=== PATIENT | female | born 1945 | race Caucasian/White ===

== ENCOUNTER 2017-10-08 12:22 | Observation (INO) | payer OTHER, MEDICAID ==
--- NOTE | 2017-10-08 12:48 | CPEKG ---
Heart Rate: 70 RR Interval: 857 P-R Interval: 152 QRSD Interval: 80 QT Interval: 408 QTC Interval: 441 P [place]: 33 QRS [place]: -11 T Wave [place]: 2 EKG Severity - BORDERLINE ECG - EKG Impression: SINUS RHYTHM EKG Impression: CONSIDER ANTERIOR INFARCT EKG Impression: BORDERLINE T ABNORMALITIES, ANTERIOR LEADS Electronically Signed By: Collin Blackwell 09-Oct-2017 16:51:43
[2017-10-08] MEDS ORDERED: ASPIRIN 81 MG CHEWABLE TAB PO ONE (12:59)
[2017-10-08] MEDS ORDERED: NS 500 ML IV ONE (12:59)
[2017-10-08] MEDS ORDERED: MECLIZINE HCL 25 MG TAB PO ONE (13:02)
[2017-10-08] MEDS ORDERED: NITROGLYCERIN 2% 1 GM PACKET TP ONE (13:05)
[2017-10-08] MEDS ORDERED: NITROGLYCERIN 2% 1 GM PACKET ONE (13:06)
--- NOTE | 2017-10-08 13:25 | EDPHY ---
H & P Stated Complaint: dizzy, nausea, buchanan, and fatigue for 3 days since arriving to [place] Time Seen by Provider: 10/08/17 12:27 HPI/ROS: This patient complains of a 3 day history of generalized weakness and fatigue associated with nausea and anorexia. She also complains of shortness of breath over the past 3 days. The shortness of breath worsens with exertion with no other exacerbating factors noted. She reports associated lightheadedness intermittently when she is on her feet. She arrived here in [place] from [place] after driving here with family 1 week ago. She also reports that she had a sore throat at the beginning of the week this 6/10 intensity is now resolved. She also had some nasal congestion which persists. Finally, she reports a mild cough in the mornings that feels congested but does not produce any sputum. ROS: Constitutional: No fevers or chills. Positive fatigue. She slept for 20 hr yesterday and reports generalized fatigue today. HEENT: As per HPI. Currently no sore throat. No ear pain. No sinus pain. Mild nasal congestion. Neuro: She reports headache over the past few days frontal in location moderate intensity that improved with caffeine this morning. No other exacerbating factors are noted. Currently minimal to no headache. No focal numbness tingling weakness. Pulmonary: No hemoptysis. No pleuritic pain. Cardiovascular: No chest pain. She has not noticed heart palpitations. She denies any leg swelling or pain. GI: Nausea but no vomiting. No abdominal pain. She reports a few stools a day for the past few days. : No dysuria, frequency urgency. Musculoskeletal: She has chronic low back pain that is unchanged. She also has pain the trapezius muscles which is chronic for her unchanged. Endocrine: No complaints Source: Patient, Family (Patient is accompanied by her daughter who drove her here by private vehicle for further evaluation.) Exam Limitations: No limitations - Medical/Surgical History PMH: Hypercholesterolemia Hypertension No known cardiac history in this patient. Family history Sister with premature coronary artery disease. Her mother also of an [place] at around age 69. No family history of DVT or PE. Other PMH: htn, depression, zechariah-diaz, ovarian cyst removal, appy, BTL, bladder CA remission since 2007 - Family History Significant Family History: Heart disease (See above) - Social History Smoking Status: Former smoker Alcohol Use: None Drug Use: None Additional Social History: Drove to [place] from [place] 1 week ago. Lives in [place] prior to the last 6 weeks in [place]. - Physical Exam Exam: General Appearance: Pleasant 71-year-old female Alert, no distress. Eyes: Pupils equal and round no pallor or injection. ENT, Mouth: Mucous membranes moist. Oropharynx clear with no erythema, exudates or dysphonia. No sinus tenderness to percussion. Ears are clear bilaterally. Respiratory: Soft rales at the bases bilaterally right more than left. Cardiovascular: Regular rate and rhythm. No murmur gallop rub. No JVD. No calf swelling or tenderness. Gastrointestinal: Abdomen is soft and nontender, no masses, bowel sounds normal. Neurological: GCS 15 with no focal deficits. Skin: Warm and dry, no rashes. Musculoskeletal: Neck is supple nontender. Extremities are symmetrical, full range of motion. Psychiatric: Mood and affect are normal DIFFERENTIAL DIAGNOSIS: After history and physical exam differential diagnosis was considered for myocardial ischemic disease, viral syndrome, pneumonia, pulmonary embolism, mild gastroenteritis with dehydration, UTI Constitutional: Initial Vital Signs Temperature (C) 36.7 C 10/08/17 12:32 Heart Rate 72 10/08/17 12:32 Respiratory Rate 18 10/08/17 12:32 Blood Pressure 175/96 H 10/08/17 12:32 O2 Sat (%) 92 10/08/17 12:32 O2 Delivery Mode Room Air O2 (L/minute) 2 Allergies/Adverse Reactions: No Known Allergies Allergy (Unverified 10/08/17 12:30) Home Medications: Medication Instructions Recorded Hydrochlorothiazide 10/08/17 Lexapro 10/08/17 Losartan Potassium 10/08/17 Tylenol PM (*) 10/08/17 Medical Decision Making - Diagnostics EKG Interpretation: 12 lead EKG performed shortly after arrival at 1246 indication generalized weakness with nausea rule out cardiac ischemia or KY Sinus rhythm at 70 Intervals: Normal throughout [place]: P of 33, QRS of -11, T of 2 ST segments: T-wave inversions leads V2 and V3. Also a poor R-wave progression anteriorly Overall assessment sinus rhythm with evidence of possible anterior ischemia. No prior EKGs for comparison at this time. Imaging Results: Imaging Impressions Chest X-Ray 10/08/17 13:03 Impression: Hyperexpanded lungs which can be seen with COPD. Two view chest x-ray: Normal by my interpretation Imaging: I viewed and interpreted images myself ED Course/Re-evaluation: IV, cardiac rn Supplemental O2 with improvement in her O2 sat from 92% to mid 90s Meclizine for nausea Aspirin 324 chewed 0.5 in nitropaste Studies: CBC is normal, metabolic panel normal, POC troponin is 0, D-dimer is normal. Urine dip positive only for will minimal leuks. I spoke with Marce mid-level practitioner with the hospitalist group and arrange for admission for this patient to Dr. Bedolla Discussion: This patient presents with generalized weakness nausea and dyspnea associated with any EKG concerning for possible anterior ischemic findings. In terms of her background history and risk factor she has a heart score of 7 warranting admission for further workup and evaluation. See no evidence of pneumonia on her chest x-ray, given low risk factors and normal D-dimer, we have effectively ruled out pulmonary embolism. Doubt acute infectious etiology given normal CBC, lack of fever or other focal findings. - Data Points Laboratory Results: Laboratory Results 10/08/17 12:47 10/08/17 10/08/17 10/08/17 12:52 12:51 12:47 WBC RBC Hgb Hct MCV MCH MCHC RDW Plt Count MPV Neut % (Auto) Lymph % (Auto) Upton % (Auto) Eos % (Auto) Baso % (Auto) Nucleat RBC Rel Count Absolute Neuts (auto) Absolute Lymphs (auto) Absolute Monos (auto) Absolute Eos (auto) Absolute Basos (auto) Absolute Nucleated RBC Immature Gran % Immature Gran # PT INR APTT D-Dimer POC Sodium 136 mEq/L mEq/L (135-145) POC Potassium 4.0 mEq/L mEq/L (3.3-5.0) POC Chloride 101.0 mEq/L mEq/L (97-110) POC Total CO2 25 mEq/L mEq/L (22-31) POC BUN 10 mg/dL mg/dL (7-23) POC Creatinine 1.0 mg/dL mg/dL (0.6-1.0) POC Glucose 125 mg/dL H mg/dL (70-100) POC Calcium 9.3 mg/dL mg/dL (8.5-10.4) POC Total Bilirubin 0.5 mg/dL mg/dL (0.1-1.4) POC AST 32 IU/L IU/L (14-46) POC ALT 21 IU/L IU/L (9-52) POC Alk Phosphatase 98 IU/L IU/L (38-126) POC Troponin I 0.00 ng/mL ng/mL (0.00-0.08) Troponin I Pending NT-Pro-B Natriuret Pep Pending POC Total Protein 7.3 g/dL g/dL (6.3-8.2) POC Albumin 4.0 g/dL g/dL (3.5-5.0) 10/08/17 10/08/17 12:47 12:47 WBC 8.56 10^3/uL 10^3/uL (3.80-9.50) RBC 5.01 10^6/uL 10^6/uL (4.18-5.33) Hgb 14.3 g/dL g/dL (12.6-16.3) Hct 43.5 % % (38.0-47.0) MCV 86.8 fL fL (81.5-99.8) MCH 28.5 pg pg (27.9-34.1) MCHC 32.9 g/dL g/dL (32.4-36.7) RDW 14.3 % % (11.5-15.2) Plt Count 323 10^3/uL 10^3/uL (150-400) MPV 9.9 fL fL (8.7-11.7) Neut % (Auto) 62.2 % % (39.3-74.2) Lymph % (Auto) 25.9 % % (15.0-45.0) Upton % (Auto) 9.2 % % (4.5-13.0) Eos % (Auto) 1.6 % % (0.6-7.6) Baso % (Auto) 0.9 % % (0.3-1.7) Nucleat RBC Rel Count 0.0 % % (0.0-0.2) Absolute Neuts (auto) 5.31 10^3/uL 10^3/uL (1.70-6.50) Absolute Lymphs (auto) 2.22 10^3/uL 10^3/uL (1.00-3.00) Absolute Monos (auto) 0.79 10^3/uL 10^3/uL (0.30-0.80) Absolute Eos (auto) 0.14 10^3/uL 10^3/uL (0.03-0.40) Absolute Basos (auto) 0.08 10^3/uL 10^3/uL (0.02-0.10) Absolute Nucleated RBC 0.00 10^3/uL 10^3/uL (0-0.01) Immature Gran % 0.2 % % (0.0-1.1) Immature Gran # 0.02 10^3/uL 10^3/uL (0.00-0.10) PT 13.0 SEC SEC (12.0-15.0) INR 0.96 (0.83-1.16) APTT 28.3 SEC SEC (23.0-38.0) D-Dimer < 0.27 ug/mLFEU ug/mLFEU (0.00-0.50) POC Sodium POC Potassium POC Chloride POC Total CO2 POC BUN POC Creatinine POC Glucose POC Calcium POC Total Bilirubin POC AST POC ALT POC Alk Phosphatase POC Troponin I Troponin I NT-Pro-B Natriuret Pep POC Total Protein POC Albumin Medications Given: Discontinued Medications Aspirin (Aspirin) 324 mg PO EDNOW ONE Stop: 10/08/17 13:00 Last Admin: 10/08/17 13:15 Dose: 324 mg Meclizine HCl (Meclizine Hcl) 25 mg PO EDNOW ONE Stop: 10/08/17 13:03 Last Admin: 10/08/17 13:15 Dose: 25 mg Nitroglycerin (Nitro-Bid 2%) 0.5 inch TP EDNOW ONE Stop: 10/08/17 13:06 Last Admin: 10/08/17 13:13 Dose: 0.5 inch Point of Care Test Results: Chemistry 10/08/17 10/08/17 12:52 12:51 POC Sodium 136 mEq/L mEq/L (135-145) POC Potassium 4.0 mEq/L mEq/L (3.3-5.0) POC Chloride 101.0 mEq/L mEq/L (97-110) POC Total CO2 25 mEq/L mEq/L (22-31) POC BUN 10 mg/dL mg/dL (7-23) POC Creatinine 1.0 mg/dL mg/dL (0.6-1.0) POC Glucose 125 mg/dL H mg/dL (70-100) POC Calcium 9.3 mg/dL mg/dL (8.5-10.4) POC Total Bilirubin 0.5 mg/dL mg/dL (0.1-1.4) POC AST 32 IU/L IU/L (14-46) POC ALT 21 IU/L IU/L (9-52) POC Alk Phosphatase 98 IU/L IU/L (38-126) POC Troponin I 0.00 ng/mL ng/mL (0.00-0.08) POC Total Protein 7.3 g/dL g/dL (6.3-8.2) POC Albumin 4.0 g/dL g/dL (3.5-5.0) Departure - Departure Disposition: [facility] Inpatient Acute Clinical Impression: Generalized weakness, Anterior T wave inversion, Nausea Condition: Fair
[2017-10-08 14:11] LABS: PLATELET COUNT 323 10^3/uL (150-400)
[2017-10-08 14:27] LABS: INR 0.96 (0.83-1.16)
[2017-10-08] MEDS ORDERED: ONDANSETRON DISINTEGRATING 4 MG TAB PO PRN (16:28)
[2017-10-08] MEDS ORDERED: ACETAMINOPHEN 325 MG TAB PO PRN (16:28)
[2017-10-08] MEDS ORDERED: ONDANSETRON 4 MG/2 ML VIAL IVP PRN (16:28)
--- NOTE | 2017-10-08 16:36 | PDGENHP ---
History and Physical - Chief Complaint chest pain - History of Present Illness 71 yo female [place] [facility] [place] with multiple symptoms. She has had a sore throat, stuffy head and headache for past week. For the past 3 days, she has felt lightheaded and dizzy. No vertigo, more lightheaded sensation. No chest pain. She denies shortness of breath, but c/o dyspnea on exertion. +non- productive cough, which is mild. She notes a h/o sleep apnea, untreated, and is sleeping more than usual. She slept 20 hrs yesterday. No fevers or chills. No h/o hayfever or allergies. She lives in [place] and spent the past month in [place], [place]. She has been in [place] for about a week and has previously travelled to [facility] without symptoms. History Information - Allergies/Home Medication List Allergies/Adverse Reactions: No Known Allergies Allergy (Unverified 10/08/17 12:30) Home Medications: Acetamn/Diphenhydramine 500/25 [Tylenol PM (*)] 1 each PO HS 10/08/17 [Last Taken 10/07/17] Escitalopram Oxalate [Lexapro] 20 mg PO HS 10/08/17 [Last Taken 10/08/17] Herbals/Supplements -Info Only 1 ea PO DAILY 10/08/17 [Last Taken 10/08/17] Hydrochlorothiazide [HCTZ (*)] 25 mg PO DAILY PRN 10/08/17 [Last Taken 10/08/17] Losartan Potassium [Cozaar 50 mg (*)] 50 mg PO HS 10/08/17 [Last Taken 10/08/17] I have personally reviewed and updated: family history, medical history, social history, surgical history - Past Medical History hypertension Additional medical history: depression. h/o ebv. sleep apnea - Surgical History Reports: no pertinent surgical hx - Family History Additional family history: dad had copd. mom had heart disease. sister has h/ o MA and CVA - Social History Smoking Status: Former smoker Alcohol Use: None Drug Use: None Additional social history: Travelling currently, from . Quit smoking 30 yrs ago. Review of Systems Review of Systems: ROS: 10pt was reviewed & negative except for what was stated in HPI & below Physical Exam Physical Exam: Temp Pulse Resp BP Pulse Ox 36.9 C 79 16 135/88 H 89 L 10/08/17 15:50 10/08/17 15:50 10/08/17 15:50 10/08/17 15:50 10/08/17 15:50 Constitutional: no apparent distress Eyes: PERRL Ears, Nose, Mouth, Throat: moist mucous membranes Cardiovascular: regular rate and rhythym, systolic murmur, carotid bruit (right carotid bruit) Respiratory: no respiratory distress, clear to auscultation Gastrointestinal: normoactive bowel sounds, soft, non-tender abdomen Skin: warm Musculoskeletal: full muscle strength Neurologic: AAOx3, CN II-XII Intact Psychiatric: interacting appropriately Lab Data & Imaging Review 10/08/17 12:47 WBC 8.56 10^3/uL (3.80-9.50) 10/08/17 12:47 RBC 5.01 10^6/uL (4.18-5.33) 10/08/17 12:47 Hgb 14.3 g/dL (12.6-16.3) 10/08/17 12:47 Hct 43.5 % (38.0-47.0) 10/08/17 12:47 MCV 86.8 fL (81.5-99.8) 10/08/17 12:47 MCH 28.5 pg (27.9-34.1) 10/08/17 12:47 MCHC 32.9 g/dL (32.4-36.7) 10/08/17 12:47 RDW 14.3 % (11.5-15.2) 10/08/17 12:47 Plt Count 323 10^3/uL (150-400) 10/08/17 12:47 MPV 9.9 fL (8.7-11.7) 10/08/17 12:47 Neut % (Auto) 62.2 % (39.3-74.2) 10/08/17 12:47 Lymph % (Auto) 25.9 % (15.0-45.0) 10/08/17 12:47 Hood % (Auto) 9.2 % (4.5-13.0) 10/08/17 12:47 Eos % (Auto) 1.6 % (0.6-7.6) 10/08/17 12:47 Baso % (Auto) 0.9 % (0.3-1.7) 10/08/17 12:47 Nucleat RBC Rel Count 0.0 % (0.0-0.2) 10/08/17 12:47 Absolute Neuts (auto) 5.31 10^3/uL (1.70-6.50) 10/08/17 12:47 Absolute Lymphs (auto) 2.22 10^3/uL (1.00-3.00) 10/08/17 12:47 Absolute Monos (auto) 0.79 10^3/uL (0.30-0.80) 10/08/17 12:47 Absolute Eos (auto) 0.14 10^3/uL (0.03-0.40) 10/08/17 12:47 Absolute Basos (auto) 0.08 10^3/uL (0.02-0.10) 10/08/17 12:47 Absolute Nucleated RBC 0.00 10^3/uL (0-0.01) 10/08/17 12:47 Immature Gran % 0.2 % (0.0-1.1) 10/08/17 12:47 Immature Gran # 0.02 10^3/uL (0.00-0.10) 10/08/17 12:47 PT 13.0 SEC (12.0-15.0) 10/08/17 12:47 INR 0.96 (0.83-1.16) 10/08/17 12:47 APTT 28.3 SEC (23.0-38.0) 10/08/17 12:47 D-Dimer < 0.27 ug/mLFEU (0.00-0.50) 10/08/17 12:47 POC Sodium 136 mEq/L (135-145) 10/08/17 12:51 POC Potassium 4.0 mEq/L (3.3-5.0) 10/08/17 12:51 POC Chloride 101.0 mEq/L (97-110) 10/08/17 12:51 POC Total CO2 25 mEq/L (22-31) 10/08/17 12:51 POC BUN 10 mg/dL (7-23) 10/08/17 12:51 POC Creatinine 1.0 mg/dL (0.6-1.0) 10/08/17 12:51 POC Glucose 125 mg/dL (70-100) H 10/08/17 12:51 POC Calcium 9.3 mg/dL (8.5-10.4) 10/08/17 12:51 POC Total Bilirubin 0.5 mg/dL (0.1-1.4) 10/08/17 12:51 POC AST 32 IU/L (14-46) 10/08/17 12:51 POC ALT 21 IU/L (9-52) 10/08/17 12:51 POC Alk Phosphatase 98 IU/L (38-126) 10/08/17 12:51 POC Troponin I 0.00 ng/mL (0.00-0.08) 10/08/17 12:52 Troponin I < 0.012 ng/mL (0.000-0.034) 10/08/17 12:47 NT-Pro-B Natriuret Pep 170 pg/mL (0-125) H 10/08/17 12:47 POC Total Protein 7.3 g/dL (6.3-8.2) 10/08/17 12:51 POC Albumin 4.0 g/dL (3.5-5.0) 10/08/17 12:51 Visualized and Interpreted Chest x-ray results: Yes Chest X-Ray results: no infiltrate, other (hyperexpanded lung cerrato) Visualized and Interpreted EKG results: Yes EKG Interpretation: Positive for: normal sinsus rhythm, T waves inversion Assessment & Plan Assessment: Dyspnea - Differential includes COPD, ACS, pulmonary hypertension (note h/o untreated ANAHI), viral URI. D dimer neg. EKG with anterior and inferior T wave inversions. Chest pain free. CXR with hyperexpanded lung cerrato, distant tobacco hx. -trend trop -check echo to eval LV function as well as assess for pulmonary hypertension and valve dz -prn duonebs -advised needs to revisit outpt sleep study -send resp viral panel Dizziness - as above, check echo to r/o valve disease. Also, obtain carotid artery u/s given right carotid bruit on exam. Check TSH and orthostatics. Abnormal EKG - no chest pain, trop neg. HEART score 4, 16% risk of adverse cardiac event. -trend trop -stress test in am if trops neg Hypertension - cont outpt meds ANAHI - outpt sleep study, CPAP recommended. May need nocturnal O2 here. Full code Dispo - obs, possible d/c tomorrow if above workup neg.
[2017-10-08] MEDS ORDERED: IPRATROPIUM/ALBUTEROL 3 ML DEYVIAL IH PRN (16:40)
[2017-10-08] MEDS ORDERED: NITROGLYCERIN 2% 1 GM PACKET TP SCH (18:00)
[2017-10-08] MEDS ORDERED: MAGNESIUM OXIDE 400 MG TAB PO SCH (21:00)
[2017-10-08] MEDS ORDERED: LOSARTAN POTASSIUM 50 MG TAB PO SCH (21:00)
[2017-10-08] MEDS ORDERED: ESCITALOPRAM OXALATE 10 MG TAB PO SCH (21:00)
[2017-10-08] MEDS ORDERED: ACETAMN/DIPHENHYDRAMINE 500/25MG TAB PO SCH (21:00)
[2017-10-09] MEDS ORDERED: ASPIRIN EC 81 MG TAB PO SCH (09:00)
[2017-10-09] MEDS ORDERED: REGADENOSON 0.4 MG/5 ML SYR IVP ONE (10:18)
--- NOTE | 2017-10-09 11:31 | CPR ---
[f rep st] NONINVASIVE CARDIAC PROCEDURE REPORT DATE OF PROCEDURE: 10/09/2017 PROCEDURE: Lexiscan stress test. ORDERING PHYSICIAN: Lynn Bedolla MD., hospitalist. REASON FOR TEST: 1. Chest pain. 2. Abnormal EKG. Resting EKG shows a heart rate of 82. Normal sinus rhythm. No ischemic changes. She does have Q waves in lead III, late R-wave progression in V1, V2. RESTING INFORMATION: Resting pre blood pressure 132/71, heart rate 82, oxygen saturation 92% asympto matic. She is asymptomatic prior to initiation of test portion. Lexiscan was injected rapidly, followed by saline flush. Cardiolite was then injected, followed by s samson flush. She did feel tingling in her back of her neck down to her toes and then into her finger tips soon after the injection. She did become flushed. Test blood pressure 148/84, oxygen saturatio n 97, peak heart rate 108. No EKG changes with infusion. RECOVERY: She did spontaneously recover. Resting blood pressure 146/78, oxygen saturation 93%, hear t rate 91. Her symptoms did subside during recovery with caffeine. At this time, she currently is s table. She is stable for nuclear imaging. /[id number]/MODL
--- NOTE | 2017-10-09 13:37 | ECHO ---
[email or web address] [address] [address] Main: [phone] Fax: [email or web address] Echocardiogram Name: RUTH ANN FERREIRA MR#: [id number] Study Date: 10/09/2017 Study Time: 12:19 PM Date of : 1945 Age: 71 year(s) Height: 157.5 cm (62 in.) Weight: 71.67 kg (158 lb.) BSA: 1.73 m2 Gender: Female Examination: Echo Indication: SOB/BAER Image Quality: Contrast: Requested by: Lynn Bedolla BP: 161 mmHg/100 mmHg Heart Rate: Rhythm: Indication: SOB/BAER Procedure Staff Claims Counsel: Rochelle Bowers RDCS Reading Physician: Rajendra Dupont MD Requesting Provider: Conclusions: Normal size left ventricle. No LV hypertrophy. Global hypercontractility of the left ventricle. The ejection fraction is estimated to be 70-75 %. Mild mitral valve regurgitation is present. The aortic valve is tri-leaflet. Trivial tricuspid valve regurgitation. No previous. Measurements: Chambers Valvular Assessment AV/MV Valvular Assessment TV/PV Normal Normal Normal Name Value Range Name Value Range Name Value Range Ao Sharon (MM): 3.0 cm (2.2 cm-3.7 AV meanP mmHg ( - ) cm) IVSd (2D): 1.1 cm (0.6 cm-1.1 cm) LVDd (2D): 3.5 cm (3.9 cm-5.3 cm) LVDs (2D): 1.6 cm (2.1 cm-4 cm) LVPWd (2D): 0.8 cm ( - ) LVEF (2D): 85 (>=54 %) EF Range: 70-75 % Continued Measurements: Chambers Valvular Assessment AV/MV Name Value Name Value Patient: RUTH ANN FERREIRA Study Date: 10/09/2017 Page 1 of 2 12:19 PM LADs: 3.1 cm MV E' Septal: 0.06 m/s LADs Lon.3 cm LA Area: 14.2 cm2 Additional Vessels Name Value Ao Ascendin.3 cm Findings: Left Ventricle: Normal size left ventricle. No LV hypertrophy. Global hypercontractility of the left ventricle. The ejection fraction is estimated to be 70-75 %. No regional wall motion abnormality. Right Ventricle: Normal size right ventricle. Left Atrium: The left atrium is normal in size. Right Atrium: The right atrium is normal in size. Mitral Valve: Mild mitral annular calcification. Mild mitral valve regurgitation is present. Aortic Valve: The aortic valve is normal in appearance and function. The aortic valve is tri-leaflet. Tricuspid Valve: The tricuspid valve is normal in appearance and function. Trivial tricuspid valve regurgitation. Pulmonic Valve: The pulmonic valve is normal in appearance and function. Trivial pulmonic valve regurgitation. Aorta: The aorta is normal. Pericardium: No pericardial effusion. There is pericardial fat. (No Signature Object) Patient: RUTH ANN FERREIRA Study Date: 10/09/2017 Page 2 of 2 12:19 PM [id number]
--- NOTE | 2017-10-09 15:10 | ASMTCASEMG ---
Living Arrangements What is your living Answers: Alone arrangement? Who do you live with? Type Of Residence What kind of residence do Answers: House you live in? Discharge Plan Comments Coordination Status Comments Notes: Pts case discussed in morning rounds. Pt is a 71 y/o female admitted for chest pain and weakness. Pt is visiting from [place]. Therapies have been ordered and awaiting recommendations. Needs are TBD at this time. CM to follow. Plan: TBD Date Signed: 10/09/2017 03:09 PM Electronically Signed By:MOLLY Smith
[2017-10-09 15:36] VITALS: BP 156/85
--- NOTE | 2017-10-09 18:24 | PDDCSUM ---
Discharge Summary Discharge Summary: DISCHARGE DIAGNOSES: -acute hypoxemic respiratory failure -suspect COPD from prior smoking is most likely cause but could not rule out asthma -known untreated obstructive sleep apnea, not using CPAP which has been prescribed -question of possible restrictive lung disease based on bedside spirometry PROCEDURES: * Bedside spirometry showing notable improvement in her forced expiratory volume after bronchodilator. The FEV/FVC ratio before bronchodilator was in what might be considered normal range, but I believe this may be due to the fact that the FVC actually measured low at 64% of her predicted value. Whether this actually represents any restriction or not is questionable at this time. * Echocardiogram showing preserved LVEF with no wall motion abnormalities, no valvular findings of concern, and no evidence of pulmonary hypertension, though there was not a tricuspid jet to measure pulmonary pressure estimates * Lexiscan stress with myocardial perfusion imaging with normal ejection fraction and wall motion, and no perfusion abnormalities * Carotid Doppler imaging with no evidence of any significant stenosis HOSPITAL COURSE SUMMARY: This patient who is visiting from [place] after driving across the country, comes into the hospital complaining of shortness of breath, along with a number of other symptoms including a slight cough, sore throat, some lightheadedness, and some mild loose stools. There is no fever. She did not have any chest pain and there was no arrhythmia and no evidence of heart failure. There was nothing to suggest thromboembolic disease. She was tested for viral infections with nasal swabs and stool studies but nothing showed up on PCR. She did have some hypoxemia. Lungs had clear but diminished breath sounds, and chest x-ray showed some mild hyperexpansion but otherwise unremarkable. She was tested with echocardiogram a myocardial perfusion stress testing to look for any cardiac cause and these tests were essentially normal as detailed above. The patient did here have some exertional dyspnea. There was some intermittent mild hypoxemia at rest, but she became notably more hypoxemic with easy walking in the hallway and more dyspneic with this. The patient did has previous history of diagnosed sleep apnea which has been untreated, which she says is because she has had trouble getting the proper face mask and trouble getting insurance coverage due to timing of getting face mask. We did not see evidence of pulmonary hypertension or right heart failure here. She does have a history of smoking cigarettes for 30 years but quit around 30 years ago. We did do some bedside spirometry and this shows abnormalities as described above, primarily a obstructive abnormality that improves with bronchodilator challenge. Given her smoking history, her hypoxemia, her chest x-ray with hyperexpansion, decreased breath sounds, and her bedside spirometry changes I suspect this is most likely COPD with symptoms manifesting at higher altitude than her home. However given her postmenopausal state and her recent slight cough could not rule out asthma, though did not hear wheezing here. The plan here is to start her on albuterol and Advair. She is doing well enough that we can discharge her from the hospital at this time. Her plan had been [place] [facility] [place]. I have told them that I cannot predict how well she will tolerate that and she has decided that she will skip that part of her trip. She will stay here in [place] and plan on driving back to [place] about a week from now as previously planned. I recommended that she see her stage director/sleep specialist upon return to [place]. She should have formal pulmonary function testing in the pulmonology Clinic, ongoing follow-up of her respiratory issues, and reassessment of her sleep apnea with plans together either started on CPAP or with a oral device or other effective treatment. I have counseled her on getting yearly flu shots and keeping up to date on pneumonia vaccines. I have counseled her on the technique of using her inhalers, as well as to do a oral water washout after use of the inhaled steroid. PENDING TEST RESULTS: None MEDICATION CHANGES: Addition of albuterol inhaler for p.r.n. Use as well as Advair for twice daily use FOLLOW-UP PLAN: She will plan to follow up with her primary care physician and her stage director back in [place] upon her arrival there after this trip Greater than 35 minutes bedside and care coordination time today
== END 2017-10-09 19:41 | disposition home or self-care (01) ==
LOC: CED 12:22 → CEDHOLD 13:19 → INTOOBSV 13:19 → F2W 15:30
PROVIDERS: ADMIT Hospitalist; ATTEND Hospitalist
DX: J96.91 Respiratory failure, unspecified with hypoxia (principal); G47.33 Obstructive sleep apnea (adult) (pediatric); Z87.891 Personal history of nicotine dependence
CPT/HCPCS: 71046; 78452; 93005; 93017; 93306; 93880; A9500; G0378; J2785; 80053-PO; 84484-PO